=== PATIENT | female | born 1935 | race Caucasian/White ===

== ENCOUNTER 2019-12-28 18:52 | Inpatient (IN) ==
[2019-12-28] MEDS: tiZANidine 4 MG TABLET PO SCH (21:12)
[2019-12-28] MEDS: Mirtazapine 15 MG TABLET PO SCH (21:13)
[2019-12-29] MEDS: Levothyroxine 25 MCG TABLET PO SCH (05:30)
[2019-12-29 06:53] LABS: Basophils % 0.6 %; Eosinophils # 0.1 K/mcL (0.0-0.6); Eosinophils % 2.3 %; Hematocrit 35.5 % (35.3-44.9); Immature Granulocytes % 0.2 % (0-4); Mean Corpuscular HGB Conc 33.8 g/dL (31.6-35.5); Mean Corpuscular Hemoglobin 31.5 pg (28.0-33.3); Mean Corpuscular Volume 93.2 fL (83.0-100.0); Mean Platelet Volume 10.5 fL (9.4-12.4); Monocytes # 0.6 K/mcL (0.0-1.3); Monocytes % 10.5 %; Neutrophils # 2.5 K/mcL (1.6-8.9); Platelet Count 213 K/mcL (140-400); Red Blood Count 3.81 M/mcL (3.82-4.97); Red Cell Distribution Width 13.2 % (11.5-14.5); Segmented Neutrophils % 48.4 %; White Blood Count 5.2 K/mcL (4.3-11.1)
[2019-12-29 07:13] LABS: BUN/Creatinine Ratio 28 (6-26); Blood Urea Nitrogen 19 mg/dL (8-23); Calcium 9.5 mg/dL (8.6-10.3); Carbon Dioxide 25 mEq/L (23-29); Chloride 108 mEq/L (98-107); Glucose 97 mg/dL (70-105); Osmolality,Calculated 294 (280-300); Potassium 3.9 mEq/L (3.5-5.1); Sodium 141 mEq/L (136-145); eGFR For African Americans > 60 (> 60); eGFR For Non-African Americans > 60 (> 60)
[2019-12-29] MEDS: amLODIPine 5 MG TABLET PO SCH (08:24)
[2019-12-29] MEDS: Amoxicillin 500 MG CAPSULE PO SCH (19:50)
[2019-12-29] MEDS: Mirtazapine 15 MG TABLET PO SCH (19:50)
[2019-12-29] MEDS: tiZANidine 4 MG TABLET PO SCH (19:58)
[2019-12-30] MEDS: Levothyroxine 25 MCG TABLET PO SCH (05:28)
[2019-12-30] MEDS: amLODIPine 5 MG TABLET PO SCH (10:16)
[2019-12-30] MEDS: Amoxicillin 500 MG CAPSULE PO SCH ×2 (10:16→19:51)
[2019-12-30] MEDS: Mirtazapine 15 MG TABLET PO SCH ×2 (19:51→20:01)
[2019-12-30] MEDS: tiZANidine 4 MG TABLET PO SCH ×2 (19:51→20:02)
[2019-12-31] MEDS: Levothyroxine 25 MCG TABLET PO SCH (05:43)
[2019-12-31] MEDS: Amoxicillin 500 MG CAPSULE PO SCH ×2 (10:22→20:08)
[2019-12-31] MEDS: amLODIPine 5 MG TABLET PO SCH (10:23)
[2019-12-31] MEDS: Mirtazapine 15 MG TABLET PO SCH (20:08)
[2019-12-31] MEDS: tiZANidine 4 MG TABLET PO SCH (20:08)
[2020-01-01] MEDS: Levothyroxine 25 MCG TABLET PO SCH (05:33)
[2020-01-01] MEDS: amLODIPine 5 MG TABLET PO SCH (08:37)
[2020-01-01] MEDS: Amoxicillin 500 MG CAPSULE PO SCH ×2 (16:44→21:54)
[2020-01-01] MEDS: tiZANidine 4 MG TABLET PO SCH (21:49)
[2020-01-01] MEDS: Mirtazapine 15 MG TABLET PO SCH (21:54)
[2020-01-02] MEDS: Levothyroxine 25 MCG TABLET PO SCH (06:31)
[2020-01-02] MEDS: Amoxicillin 500 MG CAPSULE PO SCH ×2 (08:17→20:32)
[2020-01-02] MEDS: amLODIPine 5 MG TABLET PO SCH (08:18)
[2020-01-02] MEDS: Mirtazapine 15 MG TABLET PO SCH (20:32)
[2020-01-03] MEDS: Levothyroxine 25 MCG TABLET PO SCH (06:10)
[2020-01-03] MEDS: amLODIPine 5 MG TABLET PO SCH (08:28)
[2020-01-03] MEDS: Amoxicillin 500 MG CAPSULE PO SCH ×2 (08:28→20:41)
[2020-01-03] MEDS: Mirtazapine 15 MG TABLET PO SCH (20:41)
[2020-01-04] MEDS: Levothyroxine 25 MCG TABLET PO SCH (06:01)
[2020-01-04] MEDS: amLODIPine 5 MG TABLET PO SCH (09:45)
[2020-01-04] MEDS: Mirtazapine 15 MG TABLET PO SCH (21:15)
[2020-01-05] MEDS: Levothyroxine 25 MCG TABLET PO SCH (06:31)
[2020-01-05] MEDS: amLODIPine 5 MG TABLET PO SCH (09:12)
[2020-01-05] MEDS: Mirtazapine 15 MG TABLET PO SCH (20:32)
[2020-01-06 07:12] VITALS: BP 128/72
[2020-01-06] MEDS: amLODIPine 5 MG TABLET PO SCH (09:47)
[2020-01-06] MEDS: Levothyroxine 25 MCG TABLET PO SCH (10:20)
== END 2020-01-06 10:37 | disposition home health service (06) | DRG 945 ==
LOC: INPPIK 19:55
PROVIDERS: ADMIT Family Medicine; ATTEND Family Medicine